=== PATIENT | female | born 1940 | race Caucasian/White ===

== ENCOUNTER → 2017-06-01 | Outpatient (CLI) | payer MEDICARE ==
[2017-06-01 09:43] LABS: BUN 27 mg/dL (7-18)
[2017-06-01 10:04] LABS: GFR (ESTIMATED) 44 ML/MIN (59-)
== END ==
LOC: LAB 08:11
PROVIDERS: Physician Assistant
DX: I10 Essential (primary) hypertension (principal); E78.5 Hyperlipidemia, unspecified

== ENCOUNTER → 2017-09-24 | Outpatient (CLI) | payer MEDICARE ==
[2017-09-24 15:47] LABS: BUN 13 mg/dL (7-18)
[2017-09-24 15:50] LABS: GFR (ESTIMATED) 49 ML/MIN (59-)
== END ==
LOC: LAB 14:27
PROVIDERS: Physician Assistant
DX: I10 Essential (primary) hypertension (principal)